=== PATIENT | female | born 1955 | race American Indian/Alaskan Native ===

== ENCOUNTER 2021-10-08 11:55 | Emergency (ER) | payer MEDICARE ==
--- NOTE | 2021-10-08 13:10 | Event Note ---
ED Screening Note ED Screening Note: HAS [facility] AICD/PPM IT VIBRATED LAST INTEROGATTED MAY SUPPOSE TO HAVE BATTERY CHANGE SEPT DR MIGUEL IS CARDS MD This initial assessment/diagnostic orders/clinical plan/treatment(s) is/are subject to change based on patients health status, clinical progression and re- assessment by fellow clinical providers in the ED. Further treatment and workup at subsequent clinical providers discretion. Patient/guardian urged not to elope from the ED as their condition may be serious if not clinically assessed and managed. Initial orders include: INTEROGATE DEVICE CHECK BATTERY NO CP
--- NOTE | 2021-10-08 15:53 | XRay Report ---
CHEST 1 VIEW 10/08/2021 2:47 PM INDICATION / CLINICAL INFORMATION: Chest Pain. COMPARISON: 07/07/2017 FINDINGS: SUPPORT DEVICES: 3-lead pacemaker device appears in good position. HEART / MEDIASTINUM: Heart size is borderline. LUNGS / PLEURA: No significant pulmonary or pleural abnormality. No pneumothorax. ADDITIONAL FINDINGS: No significant additional findings. IMPRESSION: 1. No acute findings. Borderline heart size. Signer Name: Memo Guido Jr, MD Signed: 10/08/2021 3:49 PM Workstation Name: [id number]
[2021-10-08 16:41] LABS: Basophils # (Auto) 0.1 K/mm3 (0.0-0.1); Basophils % (Auto) 1.3 % (0.0-1.8); Eosinophils # (Auto) 0.3 K/mm3 (0.0-0.4); Eosinophils % (Auto) 5.8 % (0.0-4.3); Hematocrit 39.8 % (30.3-42.9); Hemoglobin 12.9 gm/dl (10.1-14.3); Lymphocytes # (Auto) 1.6 K/mm3 (1.2-5.4); Lymphocytes % (Auto) 32.3 % (13.4-35.0); Mean Corpuscular HGB Conc 32 % (30-34); Mean Corpuscular Volume 98 fl (79-97); Monocytes # (Auto) 0.4 K/mm3 (0.0-0.8); Monocytes % (Auto) 7.4 % (0.0-7.3); Platelet Count 282 K/mm3 (140-440); Red Blood Count 4.07 M/mm3 (3.65-5.03)
[2021-10-08 16:49] LABS: Alanine Aminotransferase 17 units/L (7-56); BUN/Creatinine Ratio 12; Blood Urea Nitrogen 12 mg/dL (7-17); Calcium 9.9 mg/dL (8.4-10.2); Hemolysis Index 9
--- NOTE | 2021-10-08 19:32 | Emergency Department Report ---
ED General Adult HPI - General Chief complaint: Pain General Stated complaint: ICD CHECK Time Seen by Provider: 10/08/21 13:08 Source: patient Mode of arrival: Ambulatory Limitations: No Limitations - History of Present Illness Initial comments: AICD went off felt like it is vibrating , no chets pain no sob -: Sudden, hour(s) Worsens with: none Associated Symptoms: denies: denies other symptoms, confusion, chest pain, loss of appetite, malaise, nausea/vomiting Treatments Prior to Arrival: none - Related Data Allergies Allergy/AdvReac Type Severity Reaction Status Date / Time lisinopril Allergy Unknown Verified 10/08/21 13:06 ED Review of Systems ROS: Stated complaint: ICD CHECK Other details as noted in HPI Constitutional: denies: chills, fever Eyes: denies: eye pain, eye discharge, vision change ENT: denies: ear pain, throat pain Respiratory: denies: cough, shortness of breath, wheezing Cardiovascular: denies: chest pain, palpitations Endocrine: no symptoms reported Gastrointestinal: denies: abdominal pain, nausea, diarrhea Genitourinary: denies: urgency, dysuria, discharge Musculoskeletal: denies: back pain, joint swelling, arthralgia Skin: denies: rash, lesions Neurological: denies: headache, weakness, paresthesias Psychiatric: denies: anxiety, depression Hematological/Lymphatic: denies: easy bleeding, easy bruising ED Past Medical Hx - Past Medical History Hx Hypertension: Yes Hx CVA: No - Social History Smoking Status: Never Smoker ED Physical Exam - General Limitations: No Limitations General appearance: alert, in no apparent distress - Head Head exam: Present: atraumatic, normocephalic - Eye Eye exam: Present: normal appearance - ENT ENT exam: Present: mucous membranes moist - Neck Neck exam: Present: normal inspection - Respiratory Respiratory exam: Present: normal lung sounds bilaterally. Absent: respiratory distress - Cardiovascular Cardiovascular Exam: Present: regular rate, normal rhythm. Absent: systolic murmur, diastolic murmur, rubs, gallop - GI/Abdominal GI/Abdominal exam: Present: soft, normal bowel sounds - Extremities Exam Extremities exam: Present: normal inspection - Back Exam Back exam: Present: normal inspection - Neurological Exam Neurological exam: Present: alert, oriented X3 - Psychiatric Psychiatric exam: Present: normal affect, normal mood - Skin Skin exam: Present: warm, dry, intact, normal color. Absent: rash ED Course Vital Signs 10/08/21 10/08/21 10/08/21 13:07 13:21 13:40 Temperature 98 F Pulse Rate 67 60 Respiratory 16 16 Rate Blood Pressure Blood Pressure 165/92 177/90 [Left] O2 Sat by Pulse 95 98 96 Oximetry 10/08/21 10/08/21 10/08/21 13:45 14:01 14:15 Temperature Pulse Rate Respiratory Rate Blood Pressure 177/90 191/107 191/107 Blood Pressure [Left] O2 Sat by Pulse 98 88 98 Oximetry 10/08/21 10/08/21 10/08/21 14:31 14:45 15:01 Temperature Pulse Rate Respiratory Rate Blood Pressure 191/107 191/107 191/107 Blood Pressure [Left] O2 Sat by Pulse 99 99 85 Oximetry 10/08/21 10/08/21 10/08/21 15:15 15:31 15:45 Temperature Pulse Rate Respiratory Rate Blood Pressure 191/107 191/107 191/107 Blood Pressure [Left] O2 Sat by Pulse 96 84 98 Oximetry 10/08/21 10/08/21 10/08/21 16:01 16:15 16:31 Temperature Pulse Rate Respiratory Rate Blood Pressure 191/107 191/107 191/107 Blood Pressure [Left] O2 Sat by Pulse 95 98 98 Oximetry 10/08/21 10/08/21 10/08/21 16:45 17:01 17:15 Temperature Pulse Rate Respiratory Rate Blood Pressure 191/107 191/107 191/107 Blood Pressure [Left] O2 Sat by Pulse 99 99 99 Oximetry 10/08/21 10/08/21 10/08/21 17:31 17:45 18:01 Temperature Pulse Rate Respiratory Rate Blood Pressure 191/107 179/102 245/120 Blood Pressure [Left] O2 Sat by Pulse 100 94 98 Oximetry 10/08/21 18:15 Temperature Pulse Rate Respiratory Rate Blood Pressure 245/120 Blood Pressure [Left] O2 Sat by Pulse 98 Oximetry ED Medical Decision Making - Lab Data Result diagrams: 10/08/21 15:42 10/08/21 15:42 - Medical Decision Making work up negative , pt didn;t wanna wait for interrogation Critical care attestation.: If time is entered above; I have spent that time in minutes in the direct care of this critically ill patient, excluding procedure time. ED Disposition Clinical Impression: AICD malfunction Disposition: 07 LEFT AGAINST MEDICAL ADVICE Is pt being admited?: No Does the pt Need Aspirin: No Condition: Stable Instructions: Temporary Pacemaker Information
[2021-10-08 20:47] VITALS: BP 177/102
--- NOTE | 2021-10-10 19:30 | Electrocardiograph Report ---
[facility] Test Date: 2021-10-08 Test Time: 13:29:21 Pat Name: ASHIA PAREDES Department: Room: Gender: F Lav Crewman: TYRON : 1955 Requested By: MIGUEL GAN Order Number: [id number] Reading MD: Jami Sal Measurements Intervals Sherrill Rate: 60 P: 46 MT: 183 QRS: -76 QRSD: 106 T: 82 QT: 481 QTc: 481 Interpretive Statements Atrial-ventricular dual-paced rhythm Biventricular paced rhythm No previous ECG available for comparison Electronically Signed On 10-10-2021 19:29:38 EDT by Jami Sal
== END 2021-10-08 19:55 | disposition left against medical advice (07) ==
LOC: ED 11:55
DX: T82.118A Breakdown (mechanical) of other cardiac electronic device, initial encounter (principal); Y71.8 Miscellaneous cardiovascular devices associated with adverse incidents, not elsewhere classified; Y92.89 Other specified places as the place of occurrence of the external cause
CPT/HCPCS: 36415; 71045; 80053; 83690; 84484; 85025; 85610; 93005; 99283; 99284